=== PATIENT | male | born 1980 | race Caucasian/White ===

== ENCOUNTER 2019-04-07 09:47 | Emergency (ER) | payer BC, OTHER ==
[~2019-04-07] VITALS: Ht 182.9 cm; Wt 70.2 kg
--- NOTE | 2019-04-07 10:40 | NUR ---
PT BACK FROM [place]. URINE COLLECTED/SENT TO LAB. CALL LIGHT WITHIN REACH, WARM BLANKET OFFERED.
[2019-04-07 10:59] LABS: MICROSCOPIC NOT IND
[2019-04-07 11:16] LABS: CULTURE INDICATED? NO
[2019-04-07 11:41] VITALS: BP 122/61
== END 2019-04-07 11:43 | disposition home or self-care (01) ==
LOC: ED 10:49
DX: I86.1 Scrotal varices (principal)
CPT/HCPCS: 76870; 81003; 99284